=== PATIENT | female | born 1965 | race Caucasian/White ===

== ENCOUNTER 2017-03-28 06:27 | Day surgery (SDC) | payer MEDICARE, MEDICAID ==
[2017-03-25 13:08] LABS: ASPARTATE AMINO TRANSFERASE 14 U/L (15-37); BLOOD UREA NITROGEN 17 mg/dL (7-18)
[2017-03-25 13:15] VITALS: BP 123/87
[~2017-03-28] VITALS: Ht 154.9 cm; Wt 51.4 kg
[~2017-03-28 06:27] MED LIST: CLON-365 PO; METO25TA35 PO; OMEG500C PO; TRAZ100T15 PO
[2017-03-28] MEDS ORDERED: SODIUM CHLORIDE 0.9% 1,000 ML IV SCH (06:29)
[2017-03-28] MEDS ORDERED: HYDR-3240 PO (07:29)
[2017-03-28] MEDS ORDERED: ISOPROTERENOL 0.2MG/ML, 5ML ONE (07:37)
[2017-03-28] MEDS ORDERED: LIDOCAINE 2%, 20ML ONE (07:37)
[2017-03-28] MEDS ORDERED: ADENOSINE 6 MG/2 ML ONE (07:37)
[2017-03-28] MEDS ORDERED: FENTANYL PF 250 MCG/5ML ONE (08:07)
[2017-03-28] MEDS ORDERED: MIDAZOLAM 1 MG/ML, 5ML ONE (08:07)
[2017-03-28] MEDS ORDERED: DEXAMETHASONE 4 MG/ML, 5ML ONE (08:15)
[2017-03-28] MEDS ORDERED: PHENYLEPHRINE 10 MG/ML ONE (08:15)
[2017-03-28] MEDS ORDERED: ROCURONIUM 10 MG/ML ONE (08:15)
[2017-03-28] MEDS ORDERED: SUCCINYLCHOLINE 20 MG/ML, 10ML ONE (08:15)
[2017-03-28] MEDS ORDERED: PROPOFOL 10 MG/ML, 20ML ONE (08:15)
[2017-03-28] MEDS ORDERED: ALBUTEROL SULFATE 2.5 MG/3 ML NPPB PRN (09:30)
[2017-03-28] MEDS ORDERED: hydrALAzine 20 MG/ML, 1ML IV PRN (09:30)
[2017-03-28] MEDS ORDERED: MEPERIDINE/PF 25MG/0.5ML IVPush PRN (09:30)
[2017-03-28] MEDS ORDERED: PROMETHAZINE 25 MG/ML, 1ML IV PRN (09:30)
[2017-03-28] MEDS ORDERED: MIDAZOLAM 1 MG/ML, 2ML IV PRN (09:30)
[2017-03-28] MEDS ORDERED: ACETAMINOPHEN 325 MG TABLET PO PRN (09:30)
[2017-03-28] MEDS ORDERED: ONDANSETRON 2MG/ML, 2ML IVPush PRN (09:30)
[2017-03-28] MEDS ORDERED: HYDROmorphone 1 MG/ML, 1ML IV PRN (09:30)
[2017-03-28] MEDS ORDERED: ACETAMINOPHEN 325 MG TABLET ONE (09:46)
[2017-03-28] MEDS ORDERED: OXYcodone 5 MG/5 ML ORAL.SOL UDC ONE ×2 (09:46→10:05)
[2017-03-28] MEDS: OXYcodone 5 MG/5 ML ORAL.SOL UDC PO PRN ×2 (09:51→10:05)
[2017-03-28] MEDS ORDERED: FENTANYL PF 100 MCG/2ML ONE (09:57)
[2017-03-28] MEDS: FENTANYL PF 100 MCG/2ML IV PRN ×2 (10:00→10:08)
[2017-03-28] MEDS ORDERED: HYDROcodone/APAP 5/325 TABLET ONE (12:20)
[2017-03-28] MEDS ORDERED: HYDROcodone/APAP 10/325 MG TABLET PO PRN (12:30)
== END 2017-03-28 13:53 | disposition home or self-care (01) ==
LOC: CACL 06:27
PROVIDERS: ATTEND Internal Medicine Cardiovascular Disease
DX: I47.1 Supraventricular tachycardia (principal); I47.2 Ventricular tachycardia; I48.91 Unspecified atrial fibrillation; J44.9 Chronic obstructive pulmonary disease, unspecified; F41.1 Generalized anxiety disorder; F17.210 Nicotine dependence, cigarettes, uncomplicated; F12.10 Cannabis abuse, uncomplicated
CPT/HCPCS: 36415; 71020; 80053; 85025; 85610; 85730; 93005; 93613; 93620; 93621; 93623; C1730; C1894; C2630; J0330; J1100; J2250; J2370; J2704; J3010; J3490; J0153